=== PATIENT | male | born 1975 | race Caucasian/White ===

== ENCOUNTER 2016-12-19 14:45 | Outpatient (RCR) | payer OTHER | END 2017-01-03 11:19 | LOC: WSOH 14:45 | DX: S39.011A Strain of muscle, fascia and tendon of abdomen, initial encounter (principal); X50.0XXA Overexertion from strenuous movement or load, initial encounter; Y99.0 Civilian activity done for income or pay ==

== ENCOUNTER → 2017-08-21 | Outpatient (REF) | LOC: ZLAB.WCH 08:37 | DX: Z01.89 Encounter for other specified special examinations (principal) ==